=== PATIENT | male | born 1950 | race Caucasian/White ===

== ENCOUNTER 2017-02-20 14:09 | Emergency (ER) | payer MEDICARE, OTHER ==
[~2017-02-20] VITALS: Ht 180.3 cm; Wt 110.1 kg
[2017-02-20 14:10] VITALS: BP 137/98
[2017-02-20] MEDS ORDERED: METO1TAB7 PO (14:22)
[2017-02-20] MEDS ORDERED: RAMI5CA PO (14:22)
[2017-02-20] MEDS ORDERED: ATOR1TAB21 PO (14:22)
[2017-02-20] MEDS ORDERED: CLOP75TA2 PO (14:22)
[2017-02-20] MEDS ORDERED: ASPI81TA85 PO (14:22)
[2017-02-20 15:58] LABS: MEAN CORPUSCULAR HEMOGLOBIN 29.6 pg (27.0-33.0); MEAN CORPUSCULAR HGB CONC 33.9 g/dl (32.0-36.5); MEAN CORPUSCULAR VOLUME 87.3 fl (80.0-96.0); PLATELET COUNT, AUTOMATED 288 10^3/uL (150-450); RED CELL DISTRIBUTION WIDTH 13.8 % (11.5-14.5); WHITE BLOOD COUNT 13.9 10^3/uL (4.0-10.0)
[2017-02-20 16:10] LABS: INR 1.07
== END 2017-02-20 16:50 | disposition home or self-care (01) ==
LOC: M ED 14:09
DX: R04.0 Epistaxis (principal); E78.00 Pure hypercholesterolemia, unspecified; I25.2 Old myocardial infarction; Z79.82 Long term (current) use of aspirin; Z79.01 Long term (current) use of anticoagulants; Z79.899 Other long term (current) drug therapy

== ENCOUNTER → 2017-02-25 | Outpatient (CLI) | payer MEDICARE ==
[~2017-02-25] MED LIST: ASPI81TA85 PO; ATOR1TAB21 PO; CLOP75TA2 PO; METO1TAB7 PO; RAMI5CA PO
--- NOTE | 2017-02-25 12:30 | REP ---
MAXILLOFACIAL CT WITHOUT CONTRAST: HISTORY: Epistaxis. Bilateral Alicia cells are present. Minimal mucosal thickening is present in the maxillary sinuses. The remaining sinuses are clear. The osteomeatal units are patent. The middle and inferior nasal turbinates are partially paradoxical. There is kathy bullosa of the middle nasal turbinates. There is very minimal deviation of the nasal septum to the right. The cribriform plate, medial cottrell of the orbits and optic canals are intact. The carotid canals form a segment of the posterolateral cottrell of the sphenoid sinus. Calcifications are present in the right tonsil. This is secondary to previous inflammatory disease. IMPRESSION: Sinus mucosal thickening as described above. Signed by Keny Barriga MD 02/25/2017 12:36 P
== END ==
LOC: M RAD 11:51
PROVIDERS: ATTEND Specialist
DX: R04.0 Epistaxis (principal); J35.8 Other chronic diseases of tonsils and adenoids

== ENCOUNTER 2017-02-27 12:21 | Inpatient (IN) | payer MEDICARE ==
[~2017-02-27] VITALS: Ht 180.3 cm; Wt 104.5 kg
[~2017-02-27 12:21] MED LIST changes: +METOPROLOL SUCC (TopROL XL) 50MG **XL** TAB PO SCH
[2017-02-27 13:48] LABS: BASO % 0.4 % (0.0-1.0); EOS # 0.3 10^3/uL (0.0-0.50); EOS % 2.7 % (0.0-3.0); IMMATURE GRANULOCYTE % 0.3 % (0-0); LYMPH # 1.3 10^3/uL (1.5-4.5); LYMPH % 12.3 % (24.0-44.0); MEAN CORPUSCULAR HEMOGLOBIN 30.1 pg (27.0-33.0); MEAN CORPUSCULAR VOLUME 91.2 fl (80.0-96.0); MONO # 0.7 10^3/uL (0.0-0.8); NEUTROPHILS # 8.4 10^3/uL (1.8-7.7); NEUTROPHILS % 78.3 % (36.0-66.0); PLATELET COUNT, AUTOMATED 231 10^3/uL (150-450); RED CELL DISTRIBUTION WIDTH 15.7 % (11.5-14.5); WHITE BLOOD COUNT 10.8 10^3/uL (4.0-10.0)
[2017-02-27 14:06] LABS: INR 1.01
[2017-02-27 14:14] LABS: ALBUMIN 3.2 GM/DL (3.2-5.2); ALBUMIN/GLOBULIN RATIO 1.19 (1.00-1.93); ALKALINE PHOSPHATASE 97 U/L (45-117); ALT/SGPT 31 U/L (12-78); ANION GAP 5 MEQ/L (8-16); AST/SGOT 20 U/L (7-37); BILIRUBIN,DIRECT 0.3 MG/DL (0.0-0.2); BILIRUBIN,TOTAL 2.6 MG/DL (0.2-1.0); BLOOD UREA NITROGEN 16 MG/DL (7-18); CARBON DIOXIDE LEVEL 29 MEQ/L (21-32); CHLORIDE LEVEL 110 MEQ/L (98-107); CREATININE FOR GFR 0.85 MG/DL (0.70-1.30); GLOMERULAR FILTRATION RATE > 60.0 (>49); GLUCOSE, FASTING 87 MG/DL (80-110); POTASSIUM SERUM 4.1 MEQ/L (3.5-5.1); SODIUM LEVEL 144 MEQ/L (136-145); TOTAL PROTEIN 5.9 GM/DL (6.4-8.2)
--- NOTE | 2017-02-27 14:57 | HPEPDOC ---
[facility] Medical History & Physical Date of Admission Feb 27, 2017 History and Physical ATTENDING: Dr. Holden Cigarette Machines Mechanic: Dr Jose/Dr Pablo. [place]. PCP: In [place] CC: Epistaxis HPI: 67 yo M with a past medical history significant for CAD/prior AK/stent 2 2015 who states he has been having episodes of epistaxis for the past 10 days. It has been bleeding through the right nostril and he states he has had a lot of blood down his throat. The patient is transferred from [facility] for reevaluation by ENT. The patient states he began to have nose bleeding while in his garage working and it lasted approximately 2 hours 02/20/17. He was evaluated at [facility] emergency department and found to have a hemoglobin of 12.6. He was referred to ENT for outpatient evaluation. He subsequently had recurrent bleeding on 02/23/17 at which time he was evaluated at [facility] with hemoglobin noted to be 8.9 per patient. The patient was subsequently seen by Dr. Singer 02/25/17. In the office the patient had nasal endoscopy at which time according to the patient there was no noted bleeding. He was also recommended to discontinue his Plavix. He was continued on aspirin 81 mg daily. The patient states over the past 2 days he has been having nosebleeds 2-3 times per day. The patient presented to [facility] 02/26/17 with recurrent bleeding. Initially the patient's hemoglobin was noted to be 9.1. Subsequently decreased to 8.4 and 8.1. The patient received a total of 3 units PRBCs at [facility]. The patient states he had lightheadedness and dizziness associated with recurrent bleeding 02/26/17 however currently he has not had any more lightheadedness or dizziness. He denies any chest heaviness tightness or pressure. Denies dyspnea. 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 He states there are no limitations in his physical activity. He is able to exercise 5-6 days per week with aerobics for 1 hour. (>4 METS) Denies any fevers, chills, weakness, fatigue, [place], cough, palpitations, abdominal pain, N/V/D or changes in bowel or bladder habits. Upon presentation to the hospital the patient was found to have recurrent epistaxis, thus the hospitalist team was consulted. PMHx: History of AK/cardiac arrest 05/2015 BACILIO placement 2 2016 AICD. [place] 7 Biotronik 09/12 Dyslipidemia PSHX: Cardiac catheterization 2016 AICD placement 09/12 SOCHX: Resides in: Part-time in [facility], part-time in [place]. 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 Tobacco use: Denies ETOH: Social Illicit Drugs: Denies Recent travel: Denies Advanced directives: Healthcare proxy is his Quin Hensley. FAMHX: Mother: , CAD/colon cancer Father: , COPD, heart disease Siblings: 3 Alive, well. One brother AK at 58. Children: None ROS: As noted in HPI, otherwise 11pt ROS of systems reviewed and remarkable for dark tarry stools which the patient states began when he started to have nose bleeds. PE: GEN: 67 yo M, appears stated age. Well-nourished, well developed. No acute distress. Alert and oriented x 3. Pleasant, interactive. HEENT: Normocephalic, atraumatic. Pupils are equal, round, and reactive to light. Extraocular movements are intact. No nystagmus appreciated. Sclera are nonicteric. Conjunctiva without injection. Nose midline. Nasal turbinates without bogginess. EACs both patent BL. TMs both visualized and banuelos with good cone of light, no bulging or erythema. No facial asymmetry. Moist mucous membranes. Dentition fair. Pharynx pink and moist. Neck supple, trachea midline. No lymphadenopathy or thyromegaly appreciated. CHEST: Regular rate and rhythm, +S1, +S2 LUNGS: Clear to auscultation bilaterally. No wheezes, rales, or rhonchi. Breathing appears symmetric and easy. Patient is speaking in full sentences. No accessory muscle use. ABD: Round, soft, non-tender, non-distended. +Bowel sounds throughout. No rebound or guarding. No costovertebral angle tenderness. EXT: Pulses 2+ bilaterally dorsalis pedis and radial. No lower extremity edema appreciated. SKIN: [place], dry, warm. No rashes. NEURO: Alert and oriented x 3. Cranial nerves III-XII are intact. No focal deficits appreciated. CT: Maxillofacial 02/25/17 Bilateral Alicia cells are present. Minimal mucosal thickening is present in the maxillary sinuses. The remaining sinuses are clear. The osteomeatal units are patent. The middle and inferior nasal turbinates are partially paradoxical. There is kathy bullosa of the middle nasal turbinates. There is very minimal deviation of the nasal septum to the right. The cribriform plate, medial cottrell of the orbits and optic canals are intact. The carotid canals form a segment of the posterolateral cottrell of the sphenoid sinus. Calcifications are present in the right tonsil. This is secondary to previous inflammatory disease. EKG: Paced rhythm, prior AK. BLOOD CULTURES: x 2 pending. Stool occult blood positive in ED. A&P: 67 yo M with a past medical history significant for CAD/prior AK/stent 2 2015 who states he has been having episodes of epistaxis for the past 10 days. It has been bleeding through the right nostril and he states he has had a lot of blood down his throat. The patient is transferred from [facility] for reevaluation by ENT. 1. The patient will be admitted to [facility] for at least [address] Holden's service. Patient is discussed with Dr. Natarajan. 2. Recurrent epistaxis. ENT consulted, patient was seen by Dr. Singer in the ED. Nasal endoscopy was performed indicating scabbed area in the anterior right nostril, fresh blood was noted in the posterior area. Concern for posterior epistaxis. Plan as per ENT, Dr. Singer, is for surgical procedure within the next 24 hours for nasal cautery and foam packing. The patient is agreeable to the procedure. At this time hemoglobin is noted to be 10.2. ENT requests Afrin nasally temporarily until surgical procedure. Requests saline nasal spray. Continue to monitor every 6 CBC. Nothing by mouth. Gentle IV hydration. The patient has been medically optimized for surgical procedure at this time, there are no other readily alterable factors which would reduce the patient's surgical risk. 2. Acute anemia felt related to recurrent epistaxis. Consent for transfusion is placed on the chart. Type and cross is requested. 3. Stool occult blood positive. Likely related to posterior epistaxis. Plan however is to request surgical consultation, Dr. Diaz, to rule out GI bleeding. 4. CAD/AK/BACILIO 2/AICD placement. The patient's Plavix remains on hold. Continue aspirin 81 mg daily as per discussion with Dr Singer ENT. Continue metoprolol 50 mg daily with hold parameters. Continue atorvastatin 20 mg daily. Temporarily hold Ramipril 5 mg. 5. Dyslipidemia. Continue atorvastatin 20 mg by mouth daily. DVT prophylaxis. SCD/Yfn's. No anticoagulation related to above. The patient is a full code Vital Signs Vital Signs Date Time Temp Pulse Resp B/P (MAP) Pulse Ox O2 Delivery O2 Flow Rate FiO2 02/27/17 13:48 02/27/17 12:35 98.7 90 14 98 Room Air Laboratory Data Labs 24H Laboratory Tests 2 02/27/17 13:34: Immature Granulocyte % (Auto) 0.3H, White Blood Count 10.8H, Red Blood Count 3.39L, Hemoglobin 10.2L, Hematocrit 30.9L, Mean Corpuscular Volume 91.2, Mean Corpuscular Hemoglobin 30.1, Mean Corpuscular Hemoglobin Concent 33.0, Red Cell Distribution Width 15.7H, Platelet Count 231, Neutrophils (%) (Auto) 78.3H, Lymphocytes (%) (Auto) 12.3L, Monocytes (%) (Auto) 6.0H, Eosinophils (%) (Auto) 2.7, Basophils (%) (Auto) 0.4, Neutrophils # (Auto) 8.4H, Lymphocytes # (Auto) 1.3L, Monocytes # (Auto) 0.7, Eosinophils # (Auto) 0.3, Basophils # (Auto) 0.0, Immature Granulocyte # (Auto) 0.0, Nucleated Red Blood Cells % (auto) 0.0, Prothrombin Time 13.4, Prothromb Time International Ratio 1.01, Activated Partial Thromboplast Time 57.9H, Anion Gap 5L, Glomerular Filtration Rate > 60.0 , Lactic Acid Level 1.0, Calcium Level 8.0L, Aspartate Amino Transf (AST/SGOT) 20, Alanine Aminotransferase (ALT/SGPT) 31, Alkaline Phosphatase 97, Total Bilirubin 2.6H, Direct Bilirubin 0.3H, Total Creatine Kinase 76, Creatine Kinase MB 2.4, Creatine Kinase MB Relative Index 3.15, Troponin I 0.05, Total Protein 5.9L, Albumin 3.2, Albumin/Globulin Ratio 1.19, Lipase 88 CBC/BMP Laboratory Tests 02/27/17 13:34 Red Blood Count 3.39 L, Mean Corpuscular Volume 91.2, Mean Corpuscular Hemoglobin 30.1, Mean Corpuscular Hemoglobin Concent 33.0, Red Cell Distribution Width 15.7 H, Neutrophils (%) (Auto) 78.3 H, Lymphocytes (%) (Auto ) 12.3 L, Monocytes (%) (Auto) 6.0 H, Eosinophils (%) (Auto) 2.7, Basophils (%) (Auto) 0.4, Neutrophils # (Auto) 8.4 H, Lymphocytes # (Auto) 1.3 L, Monocytes # (Auto) 0.7, Eosinophils # (Auto) 0.3, Basophils # (Auto) 0.0 Microbiology Microbiology 02/27/17 Blood Culture, Received Pending 02/27/17 Blood Culture, Received Pending Home Medications Scheduled Aspirin (Aspir-81) 81 Mg Tab, 81 MG PO QHS Atorvastatin Calcium (Atorvastatin Calcium) 20 Mg Tab, 20 MG PO QHS Clopidogrel Bisulfate (Clopidogrel) 75 Mg Tab, 75 MG PO DAILY Metoprolol Succinate (Metoprolol Succinate ER) 50 Mg Tab, 50 MG PO DAILY Ramipril (Ramipril) 5 Mg Cap, 5 MG PO QHS Allergies Coded Allergies: No Known Allergies (Unverified , 02/20/17) Christina Saha Feb 27, 2017 14:57
[2017-02-27] MEDS ORDERED: NS 1,000 ML IV SCH (14:59)
[2017-02-27] MEDS ORDERED: SODIUM CHLORIDE NASAL 0.65% SPRAY BTL (OCEAN) PRN (15:00)
[2017-02-27] MEDS ORDERED: ACETAMINOPHEN TAB 650MG DOSE (2X325MG) PO PRN (15:00)
[2017-02-27 18:31] LABS: MEAN CORPUSCULAR HGB CONC 33.7 g/dl (32.0-36.5); MEAN CORPUSCULAR VOLUME 88.8 fl (80.0-96.0); PLATELET COUNT, AUTOMATED 237 10^3/uL (150-450); WHITE BLOOD COUNT 11.9 10^3/uL (4.0-10.0)
[2017-02-27] MEDS ORDERED: ASPIRIN 81 MG ENTERIC TAB PO SCH (21:00)
[2017-02-27] MEDS ORDERED: ATORVASTATIN 20 MG TAB PO SCH (21:00)
[2017-02-27] MEDS ORDERED: OXYMETAZOLINE NASAL SPRAY (AFRIN) SCH (21:00)
[2017-02-27 23:00] VITALS: BP 131/84
[2017-02-27 23:02] LABS: MEAN CORPUSCULAR HGB CONC 33.9 g/dl (32.0-36.5); MEAN CORPUSCULAR VOLUME 88.5 fl (80.0-96.0); PLATELET COUNT, AUTOMATED 240 10^3/uL (150-450); RED CELL DISTRIBUTION WIDTH 16.4 % (11.5-14.5); WHITE BLOOD COUNT 11.2 10^3/uL (4.0-10.0)
[2017-02-28] VITALS (10 sets, daily range): BP systolic 112–166; BP diastolic 63–94
[2017-02-28 03:26] LABS: MEAN CORPUSCULAR HEMOGLOBIN 30.2 pg (27.0-33.0); MEAN CORPUSCULAR HGB CONC 33.8 g/dl (32.0-36.5); MEAN CORPUSCULAR VOLUME 89.2 fl (80.0-96.0); PLATELET COUNT, AUTOMATED 210 10^3/uL (150-450); RED CELL DISTRIBUTION WIDTH 16.3 % (11.5-14.5); WHITE BLOOD COUNT 9.7 10^3/uL (4.0-10.0)
[2017-02-28 03:40] LABS: ALBUMIN 3.1 GM/DL (3.2-5.2); ALBUMIN/GLOBULIN RATIO 1.35 (1.00-1.93); ALKALINE PHOSPHATASE 93 U/L (45-117); ALT/SGPT 35 U/L (12-78); ANION GAP 6 MEQ/L (8-16); AST/SGOT 21 U/L (7-37); BILIRUBIN,TOTAL 1.9 MG/DL (0.2-1.0); BLOOD UREA NITROGEN 20 MG/DL (7-18); CALCIUM LEVEL 7.8 MG/DL (8.8-10.2); CARBON DIOXIDE LEVEL 27 MEQ/L (21-32); CHLORIDE LEVEL 111 MEQ/L (98-107); CREATININE FOR GFR 0.89 MG/DL (0.70-1.30); GLOMERULAR FILTRATION RATE > 60.0 (>49); GLUCOSE, FASTING 87 MG/DL (80-110); POTASSIUM SERUM 3.8 MEQ/L (3.5-5.1); SODIUM LEVEL 144 MEQ/L (136-145); TOTAL PROTEIN 5.4 GM/DL (6.4-8.2)
[2017-02-28 07:22] LABS: MEAN CORPUSCULAR HEMOGLOBIN 30.3 pg (27.0-33.0); MEAN CORPUSCULAR HGB CONC 34.3 g/dl (32.0-36.5); MEAN CORPUSCULAR VOLUME 88.5 fl (80.0-96.0); PLATELET COUNT, AUTOMATED 217 10^3/uL (150-450); RED CELL DISTRIBUTION WIDTH 16.3 % (11.5-14.5); WHITE BLOOD COUNT 9.7 10^3/uL (4.0-10.0)
[2017-02-28] MEDS ORDERED: THROMBIN SOLN 5,000 UNITS VIAL As Ordered ONE (08:05)
[2017-02-28] MEDS ORDERED: OXYMETAZOLINE NASAL SPRAY (AFRIN) As Ordered ONE (08:06)
[2017-02-28] MEDS ORDERED: SILVER NITRATE APPLICATOR As Ordered ONE (08:06)
[2017-02-28] MEDS ORDERED: EPINEPHrine INJ 1 MG/ML 1ML AMP As Ordered ONE (08:45)
[2017-02-28] MEDS ORDERED: MIDAZOLAM INJ 2 MG/2 ML VIAL (J2250) As Ordered ONE (09:00)
[2017-02-28] MEDS ORDERED: fentaNYL 100 MCG/2 ML INJECTION (J3010) As Ordered ONE (09:00)
[2017-02-28] MEDS ORDERED: ONDANSETRON 4MG/2ML VIAL (J2405) As Ordered ONE (09:00)
[2017-02-28] MEDS ORDERED: METOCLOPRAMIDE INJ 10MG/2ML VIAL (J2765) As Ordered ONE (09:00)
[2017-02-28] MEDS ORDERED: LIDOCAINE 2% INJ 100 MG/5 ML SDV (FOR ANES.) As Ordered ONE (09:00)
[2017-02-28] MEDS ORDERED: SUCCINYLCHOLINE 100 MG/5 ML SYRINGE (J0330) As Ordered ONE (09:00)
[2017-02-28] MEDS ORDERED: ROCURONIUM BROMIDE 50 MG/5 ML VIAL As Ordered ONE (09:00)
[2017-02-28] MEDS ORDERED: PROPOFOL 200 MG/20 ML VIAL As Ordered ONE (09:00)
[2017-02-28] MEDS ORDERED: CEPACOL LOZENGE As Ordered ONE (10:03)
[2017-02-28] MEDS ORDERED: PERCOCET 5MG/325MG TAB As Ordered ONE (10:13)
[2017-02-28] MEDS ORDERED: ONDANSETRON 4MG/2ML VIAL (J2405) IV PRN (10:15)
[2017-02-28] MEDS ORDERED: PERCOCET 5MG/325MG TAB PO PRN ×2 (10:15)
[2017-02-28] MEDS ORDERED: LR 1,000 ML IV SCH (10:15)
[2017-02-28] MEDS ORDERED: CEPACOL LOZENGE PO ONE (10:15)
[2017-02-28] MEDS ORDERED: fentaNYL 100 MCG/2 ML INJECTION (J3010) IV PRN (10:15)
[2017-02-28] MEDS ORDERED: ACETAMINOPHEN 500 MG TAB PO PRN (10:30)
--- NOTE | 2017-02-28 10:45 | ECGEPIP ---
Stationary ECG Study 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
[2017-02-28] MEDS: SODIUM CHLORIDE NASAL 0.65% SPRAY BTL (OCEAN) SCH ×4 (13:03→21:00)
--- NOTE | 2017-02-28 20:10 | CR ---
DATE OF CONSULTATION: 02/28/2017 REASON FOR CONSULTATION: The patient had severe epistaxis and the patient developed some melanotic stool after developing the severe epistaxis, and because of the amount of anemia associated with this, the hospitalist asked me to see the patient for possible gastrointestinal (GI) bleeding issues. He has had a previous colonoscopy in recent years which revealed no significant abnormalities. He does not have any gastroesophageal (GE) reflux, gastritis, or upper abdominal pain, discomfort or problems. Only complains about his nose and the epistaxis that he had. I had talked to Dr. Singer about the hematocrit being low and he was reassuring that this anemia is most likely from the epistaxis alone and unlikely to be a secondary etiology. His past medical history is significant for history of coronary artery disease, myocardial infarction and stenting, automatic implantable cardioverter defibrillator (AICD) implantation, dyslipidemia. The patient appears stable since his procedure this morning and overall has no complaints. Physical exam was deferred, given his overall improvement and I indicated that I would be glad to be available should there be further ongoing bleeding and if there is no epistaxis that occurs. IMPRESSION AND PLAN: The patient has epistaxis, most likely etiology for melanotic stools. He did feel that if his epistaxis issues resolve over the next several weeks and he still has some melanotic stools, to proceed with an upper endoscopy is reasonable. 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 Once again, most likely etiology for the melanotic stools, heme-positive stools, is the severe epistaxis. Please contact me if he has ongoing anemia despite and without ears, nose and throat (ENT) source for bleeding.
[2017-02-28] MEDS ORDERED: ATORVASTATIN 20 MG TAB PO SCH (21:00)
[2017-02-28] MEDS ORDERED: ASPIRIN 81 MG CHEW TABLET PO SCH (21:00)
[2017-02-28] MEDS ORDERED: RAMIPRIL 5 MG CAP PO SCH (21:00)
[2017-02-28] MEDS ORDERED: CEPACOL LOZENGE PO PRN (22:15)
[2017-02-28] MEDS: guaiFENesin ER 600 MG TAB PO SCH (22:38)
[2017-03-01] VITALS: BP 138/79
[2017-03-01] MEDS: SODIUM CHLORIDE NASAL 0.65% SPRAY BTL (OCEAN) SCH ×4 (03:00→08:48)
[2017-03-01 04:00] VITALS: BP 136/73
[2017-03-01 06:44] LABS: MEAN CORPUSCULAR HGB CONC 33.8 g/dl (32.0-36.5); MEAN CORPUSCULAR VOLUME 88.9 fl (80.0-96.0); PLATELET COUNT, AUTOMATED 266 10^3/uL (150-450); RED CELL DISTRIBUTION WIDTH 15.9 % (11.5-14.5); WHITE BLOOD COUNT 9.7 10^3/uL (4.0-10.0)
[2017-03-01 07:16] LABS: ALBUMIN 3.6 GM/DL (3.2-5.2); ALBUMIN/GLOBULIN RATIO 1.38 (1.00-1.93); ALKALINE PHOSPHATASE 106 U/L (45-117); ALT/SGPT 32 U/L (12-78); ANION GAP 6 MEQ/L (8-16); AST/SGOT 14 U/L (7-37); BILIRUBIN,TOTAL 1.5 MG/DL (0.2-1.0); BLOOD UREA NITROGEN 17 MG/DL (7-18); CALCIUM LEVEL 8.1 MG/DL (8.8-10.2); CARBON DIOXIDE LEVEL 29 MEQ/L (21-32); CHLORIDE LEVEL 108 MEQ/L (98-107); CREATININE FOR GFR 1.13 MG/DL (0.70-1.30); GLOMERULAR FILTRATION RATE > 60.0 (>49); GLUCOSE, FASTING 108 MG/DL (80-110); SODIUM LEVEL 143 MEQ/L (136-145); TOTAL PROTEIN 6.2 GM/DL (6.4-8.2)
[2017-03-01 08:00] VITALS: BP 121/68
[2017-03-01] MEDS: guaiFENesin ER 600 MG TAB PO SCH (08:48)
[2017-03-01 08:49] VITALS: BP 121/68
[2017-03-01] MEDS ORDERED: INFLUENZA VIRUS VACCINE HIGH DOSE 0.5 ML SYRINGE (90662) IM ONE (09:00)
[2017-03-01] MEDS ORDERED: METOPROLOL SUCC (TopROL XL) 50MG **XL** TAB PO SCH (09:00)
--- NOTE | 2017-03-02 09:53 | DSES ---
DATE OF ADMISSION: 02/27/2017 DATE OF DISCHARGE: 03/01/2017 ADMITTING DIAGNOSIS: Posterior epistaxis with anemia. PROCEDURE: Endoscopic exploration of nasal cavity for bleeding. HOSPITAL COURSE: The patient is a 67-year-old who has been on Plavix and aspirin for cardiac disease with stents and presented with marked anemia from recurring epistaxis of the right nasal cavity. From nasal endoscopy, bright red blood had been seen streaming from the posterior middle meatus The site was suspected to be a sphenopalatine type bleed as the amount of bleeding encountered, as well as the presence of a small area of bright red blood coming from underneath the middle turbinate posteriorly. He was admitted to the hospital for stabilization, medical workup in preparation for general anesthesia. He was seen by the medical team and found to be medically clear for surgery. On the morning of 02/28, underwent general anesthesia for the above procedure. Postoperative course was unremarkable by the end of the first 24 hours. There was no further bleeding. He was taking a regular diet. He was only in moderate discomfort. He was discharged home to resume his aspirin but to hold his Plavix. He will resume his home medications. He will use some extra strength Tylenol for pain. He will be seen in the office in 5 days. PHAM
--- NOTE | 2017-03-02 10:25 | RO ---
DATE OF OPERATION: 02/28/2017 PREOPERATIVE DIAGNOSIS: Posterior epistaxis. POSTOPERATIVE DIAGNOSIS: Posterior epistaxis. PROCEDURE: Endoscopic exploration of the right nasal cavity for epistaxis with cauterization of the lateral nasal wall and sphenopalatine distribution, as well as packing of the nose. SURGEON: Dr. Christophe Singer BARRER AND TACKER: ANESTHESIA: INDICATIONS: This is a 66-year-old who has been having recurrent right-sided epistaxis, both anterior and posterior, who has been on Plavix and aspirin. He continued to bleed to the point where he required transfusions times three. It was felt that exploration of this area was indicated. DESCRIPTION OF PROCEDURE: Satisfactory general endotracheal anesthesia administered. Pharyngeal pack placed in the nose, prepared for surgery by placing cotton-soaked pledgets with Afrin solution to the nasal cavity on the right side. Using the 0-degree telescope, and the nose was explored. There was an area of crusting and scabbing of the central septum where previous silver nitrate cauterization had been done. This was re-cauterized with suction cautery. No bleeding was encountered here. Then, the scope was advanced into the middle meatus and the posterior sphenoethmoid recess. Although a stream of bright red blood had been seen coming from this area as an outpatient, there was no active bleeding seen here today. The suction cautery was set on 35, and the area by the grand lamella, as well as the lateral wall and the region just underneath the middle turbinate posteriorly, was cauterized moderately. Again, no bleeding was encountered during this cauterization procedure of the area that is known for sphenopalatine bleeding. Next, Surgicel pledgets were used to fill the middle meatus on the right side and underneath the middle turbinate, as well as the sphenoethmoid recess. Next, Sinu-Foam was used to fill the superior half of the nasal cavity. The pharyngeal pack was then removed and the throat suctioned. The patient was then awakened, extubated, and sent to recovery in satisfactory condition. He will be observed for 24 hours and discharged home.
--- NOTE | 2017-03-10 14:51 | CR ---
DATE OF ADDENDUM: 03/10/2017 ADDENDUM TO DISCHARGE SUMMARY DATED 03/01/2017 Mr. Hensley was originally admitted to the hospital with severe epistaxis with plans to take him to the operating room. He had enough hemorrhage that he became quite anemic and had acute anemia due to bleeding and was given transfusions prior to and during his admission to the hospital. He underwent exploration of the bleeding site, his nose, and in fact, no major abnormality was found causing the bleeding. It was assumed that the Plavix was taking had something to do with causing enough platelet dysfunction to result in the bleeding of his nose down to the point where he became anemic. 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
== END 2017-03-01 11:20 | disposition home or self-care (01) | DRG 813 ==
LOC: M ED 12:21 → EDBD 12:21 → M ED INP 14:28 → M PED 02-28 10:04
PROVIDERS: ADMIT Internal Medicine; ATTEND Specialist
PROC: 30233N1 Transfusion of Nonautologous Red Blood Cells into Peripheral Vein, Percutaneous Approach (ICD-10-PCS; 2017-02-27)
PROC: 095K8ZZ Destruction of Nasal Mucosa and Soft Tissue, Via Natural or Artificial Opening Endoscopic (ICD-10-PCS; principal; 2017-02-28 08:00)
DX: D68.32 Hemorrhagic disorder due to extrinsic circulating anticoagulants (principal); D62 Acute posthemorrhagic anemia; R04.0 Epistaxis; E78.5 Hyperlipidemia, unspecified; I25.10 Atherosclerotic heart disease of native coronary artery without angina pectoris; I25.2 Old myocardial infarction; Z95.810 Presence of automatic (implantable) cardiac defibrillator; Z79.82 Long term (current) use of aspirin; Z79.899 Other long term (current) drug therapy

== ENCOUNTER → 2017-11-25 | Outpatient (CLI) | payer MEDICARE | LOC: M LRY 13:17 | DX: M16.11 Unilateral primary osteoarthritis, right hip (principal); M79.651 Pain in right thigh; R10.30 Lower abdominal pain, unspecified | CPT/HCPCS: 73502 ==

== ENCOUNTER → 2017-12-18 | Outpatient (CLI) | payer MEDICARE | LOC: M RAD 12:18 | DX: M79.604 Pain in right leg (principal); I25.2 Old myocardial infarction | CPT/HCPCS: 93926 ==